=== PATIENT | female | born 1990 | race Caucasian/White ===

== ENCOUNTER 2016-04-27 16:05 | Inpatient (IN) | payer OTHER ==
[~2016-04-27] VITALS: Ht 167.6 cm; Wt 107.0 kg
[~2016-04-27 16:05] MED LIST: BUSPAR15 MG PO; COLACE100 MG PO; FLAGYL500 MG PO; IRON325 MG PO; METHADOSE10 MG/1 ML PO; TRAZODONE HCL50 MG PO; XANAX0.25 MG PO
[2016-04-27 17:19] LABS: HEMATOCRIT 42.2 % (36.0-46.0); MCH 27.5 PG (29.0-34.0); MCHC 33.2 G/DL (30.0-36.0); MCV 82.9 FL (83-99); MEAN PLAT.VOLUME 10.8 uM^3 (9.5-12.4); PLATELET COUNT 190 K/uL (156-360); RBC DIS.WIDTH-CV 13.8 % (11.8-14.6); RBC DIS.WIDTH-SD 40.9 % (39-53); RED BLOOD COUNT 5.09 M/uL (3.80-5.20); WHITE BLOOD COUNT 12.8 K/uL (4.1-10.2)
[2016-04-27 17:31] LABS: CHLORIDE 105 mEq/L (99-109); POTASSIUM 4.1 mEq/L (3.7-5.4); SODIUM 137 mEq/L (136-147)
[2016-04-27 17:33] LABS: GLUCOSE 111 mg/dL (70-99)
[2016-04-27 17:35] LABS: ANION GAP 6 MEQ/L (2-14); TOTAL BILIRUBIN 0.6 mg/dL (0.0-1.0)
[2016-04-27 17:37] LABS: ALKALINE PHOSPHATASE 78 IU/L (3-129); GFR ESTIMATE (CALCULATED) > 59 mL/min/
[2016-04-27 17:38] LABS: UREA NITROGEN (BUN) 10 mg/dL (9-23)
[2016-04-27 19:25] LABS: INFLUENZA A VIRAL ANTIGEN NEGATIVE; INFLUENZA B VIRAL ANTIGEN NEGATIVE
[2016-04-27 21:10] VITALS: BP 100/61
[2016-04-28 07:39] LABS: EOSINOPHIL (%) 3.5 % (0-5); EOSINOPHIL COUNT 0.2 K/uL (0-0.3); LYMPHOCYTE COUNT 1.8 K/uL (1.0-2.8); MCH 28.2 PG (29.0-34.0); MCHC 32.8 G/DL (30.0-36.0); MCV 86.1 FL (83-99); MEAN PLAT.VOLUME 12.3 uM^3 (9.5-12.4); MONOCYTE (%) 9.6 % (3-12); MONOCYTE COUNT 0.5 K/uL (0-0.8); NEUTROPHIL (%) 49.7 % (45-76); NEUTROPHIL COUNT 2.4 K/uL (1.8-6.4); PLATELET COUNT 146 K/uL (156-360); RBC DIS.WIDTH-CV 14.1 % (11.8-14.6); RED BLOOD COUNT 4.18 M/uL (3.80-5.20)
[2016-04-28 07:41] LABS: WHITE BLOOD COUNT 4.8 K/uL (4.1-10.2)
[2016-04-28 07:46] VITALS: BP 118/71
[2016-04-28 07:46] LABS: ANION GAP 4 MEQ/L (2-14); CHLORIDE 109 MEQ/L (99-109); GFR ESTIMATE (CALCULATED) > 59 mL/min/; SAMPLE HEMOLYSIS CHECK 0; SAMPLE ICTERIC CHECK 0; SAMPLE LIPEMIA CHECK 0; SODIUM 140 MEQ/L (136-147); UREA NITROGEN (BUN) 11 mg/dL (9-23)
[2016-04-28 07:50] LABS: GLUCOSE 82 mg/dL (70-99)
[2016-04-28 08:09] LABS: INTERNAL CONTROL VALID? YES
[2016-04-28 16:42] VITALS: BP 133/69
[2016-04-28 22:41] VITALS: BP 128/76
[2016-04-29 06:50] LABS: EOSINOPHIL (%) 4.6 % (0-5); EOSINOPHIL COUNT 0.2 K/uL (0-0.3); LYMPHOCYTE COUNT 1.8 K/uL (1.0-2.8); MCH 28.6 PG (29.0-34.0); MCHC 33.7 G/DL (30.0-36.0); MCV 84.8 FL (83-99); MEAN PLAT.VOLUME 11.2 uM^3 (9.5-12.4); MONOCYTE (%) 10.5 % (3-12); MONOCYTE COUNT 0.5 K/uL (0-0.8); NEUTROPHIL COUNT 2.1 K/uL (1.8-6.4); PLATELET COUNT 141 K/uL (156-360); RBC DIS.WIDTH-CV 13.9 % (11.8-14.6); RBC DIS.WIDTH-SD 42.8 % (39-53); RED BLOOD COUNT 4.48 M/uL (3.80-5.20); WHITE BLOOD COUNT 4.6 K/uL (4.1-10.2)
[2016-04-29 07:16] LABS: ANION GAP 6 MEQ/L (2-14); CHLORIDE 107 MEQ/L (99-109); GFR ESTIMATE (CALCULATED) > 59 mL/min/; GLUCOSE 83 mg/dL (70-99); POTASSIUM 3.8 MEQ/L (3.7-5.4); SAMPLE HEMOLYSIS CHECK 0; SAMPLE ICTERIC CHECK 0; SAMPLE LIPEMIA CHECK 0; SODIUM 139 MEQ/L (136-147); UREA NITROGEN (BUN) 9 mg/dL (9-23)
[2016-04-29 09:00] VITALS: BP 117/68
[2016-04-29] MEDS ORDERED: CEFDINIR300 MG PO (10:56)
[2016-04-29] MEDS ORDERED: TRAMADOL HCL50 MG PO (10:56)
[2016-04-29] MEDS ORDERED: VENTOLIN HFA18 GM IH (10:56)
== END 2016-04-29 13:40 | disposition home or self-care (01) | DRG 871 ==
LOC: EME 16:05 → EDOF 19:12 → 5EAST 19:12
PROVIDERS: Emergency Medicine; Hospitalist; Internal Medicine
DX: A41.9 Sepsis, unspecified organism (principal); J18.9 Pneumonia, unspecified organism; J96.01 Acute respiratory failure with hypoxia; F32.9 Major depressive disorder, single episode, unspecified; E66.01 Morbid (severe) obesity due to excess calories; F17.200 Nicotine dependence, unspecified, uncomplicated; Z68.38 Body mass index [BMI] 38.0-38.9, adult
CPT/HCPCS: 71020; 80048; 80053; 83605; 85025; 85027; 87040; 87070; 87205; 87449; 87502; 94640; 99202; 99281; 99282; J0456; J0696; J1644; J1885; J7030; J7050